=== PATIENT | male | born 1995 | race African-American/Black ===

== ENCOUNTER 2017-08-07 14:00 | Emergency (ER) | payer BC ==
[2017-08-07] MEDS ORDERED: Sodium Chloride 0.9% 10 ML Syringe FLUSH PRN (15:17)
[2017-08-07] MEDS ORDERED: Ketorolac 30 MG/ML SDV IVPUSH ONE (15:17)
[2017-08-07] MEDS ORDERED: Prochlorperazine 10 MG/2 ML SDV IVPUSH ONE (15:17)
[2017-08-07] MEDS ORDERED: diphenhydrAMINE 50 MG/ML SDV IVPUSH ONE (15:18)
--- NOTE | 2017-08-07 16:41 | EDM.PDOC ---
ED HPI GENERAL MEDICAL PROBLEM - General Chief Complaint: Headache Stated Complaint: VOMITING/NAUSEA/HEADACHE Time Seen by Provider: 08/07/17 15:12 Source of Information: Reports: Patient History Limitations: Reports: No Limitations - History of Present Illness INITIAL COMMENTS - FREE TEXT/NARRATIVE: The patient presents with a generalized headache for 3 days. He has some nausea and vomiting with it. He has no numbness or weakness. He has no blurred or double vision. He has a history of migraines. He tried medicine at home but it did not help. Onset: Gradual Duration: Day(s): (3) Location: Reports: Head Quality: Reports: Sharp Severity: Severe Improves with: Reports: None Worsens with: Reports: None Associated Symptoms: Reports: Headaches, Nausea/Vomiting. 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 [No Known Home Meds] 08/07/17 [History] Past Medical History Neurological History: Reports: Migraines Social & Family History - Tobacco Use Smoking Status *Q: Never Smoker - Caffeine Use Caffeine Use: Reports: Coffee - Recreational Drug Use Recreational Drug Use: No ED ROS GENERAL - Review of Systems Review Of Systems: See Below Constitutional: Reports: No Symptoms HEENT: Reports: No Symptoms Respiratory: Reports: No Symptoms Cardiovascular: Reports: No Symptoms Endocrine: Reports: No Symptoms GI/Abdominal: Reports: No Symptoms : Reports: No Symptoms Musculoskeletal: Reports: No Symptoms Skin: Reports: No Symptoms Neurological: Reports: Headache - Physical Exam Exam: See Below Exam Limited By: No Limitations General Appearance: Alert, No Apparent Distress Ears: Normal External Exam Nose: Normal Inspection Head Exam: Atraumatic, Normocephalic Neck: Normal Inspection Respiratory/Chest: No Respiratory Distress, Lungs Clear, Normal Breath Sounds Cardiovascular: Regular Rate, Rhythm, No Edema, No Murmur GI/Abdominal: Soft, Non-Tender, No Organomegaly, No Mass Neuro Exam (Abbreviated): Alert, Oriented, No Motor/Sensory Deficits Back Exam: Normal Inspection Extremities: Normal Inspection Course - Vital Signs Last Recorded V/S: Last Vital Signs Temp 97.9 F 08/07/17 14:51 Pulse 76 08/07/17 14:51 Resp 20 08/07/17 14:51 BP 129/86 08/07/17 14:51 Pulse Ox 100 08/07/17 14:51 - Orders/Labs/Meds Orders: Active Orders 24 hr Category Date Time Status Peripheral IV Care [RC] . DIRECTED Care 08/07/17 15:17 Active Sodium Chloride 0.9% [Saline Flush] Med 08/07/17 15:17 Active 10 ml FLUSH ASDIRECTED PRN Peripheral IV Insertion Adult [OM.PC] Routine Oth 08/07/17 15:17 Ordered Medication Orders Sodium Chloride (Saline Flush) 10 ml FLUSH ASDIRECTED PRN PRN Reason: Keep Vein Open Last Admin: 08/07/17 15:35 Dose: 10 ml Meds: Medications Generic Name Dose Route Start Last Admin Trade Name Freq PRN Reason Stop Dose Admin Sodium Chloride 10 ml 08/07/17 15:17 08/07/17 15:35 Saline Flush FLUSH 10 ml ASDIRECTED PRN Administration Keep Vein Open Discontinued Medications Generic Name Dose Route Start Last Admin Trade Name Freq PRN Reason Stop Dose Admin Diphenhydramine HCl 50 mg 08/07/17 15:18 08/07/17 15:32 Benadryl IVPUSH 08/07/17 15:19 50 mg ONETIME ONE Administration Ketorolac Tromethamine 30 mg 08/07/17 15:17 08/07/17 15:33 Toradol IVPUSH 08/07/17 15:18 30 mg ONETIME ONE Administration Prochlorperazine Edisylate 10 mg 08/07/17 15:17 08/07/17 15:34 Compazine IVPUSH 08/07/17 15:18 10 mg ONETIME ONE Administration - Re-Assessments/Exams Free Text/Narrative Re-Assessment/Exam: 08/07/17 16:39 I ordered an IV, benadryl 50mg IV, toradol 30mg IV, and compazine 10mg IV. He is doing better now. I will discharge him home. Departure - Departure Time of Disposition: 16:40 Disposition: Home, Self-Care 01 Condition: Good Clinical Impression: Migraine - Discharge Information Referrals: PCP,None [Primary Care Provider] - Forms: ED Department Discharge, ED Return to Work/School Form Additional Instructions: Go home and rest in a dark room. Please return if you are worse or follow up with your doctor. - My Orders Last 24 Hours: My Active Orders 08/07/17 15:17 Peripheral IV Care [RC] . DIRECTED Sodium Chloride 0.9% [Saline Flush] 10 ml FLUSH ASDIRECTED PRN Peripheral IV Insertion Adult [OM.PC] Routine - Assessment/Plan Last 24 Hours: My Active Orders 08/07/17 15:17 Peripheral IV Care [RC] . DIRECTED Sodium Chloride 0.9% [Saline Flush] 10 ml FLUSH ASDIRECTED PRN Peripheral IV Insertion Adult [OM.PC] Routine
== END 2017-08-07 16:53 | disposition home or self-care (01) ==
LOC: JD.ED 14:00
DX: G43.909 Migraine, unspecified, not intractable, without status migrainosus (principal)
CPT/HCPCS: 96374; 96375; 99284; J0780; J1200; J1885; J7050

== ENCOUNTER 2019-10-27 02:22 | Emergency (ER) | payer BC ==
[2019-10-27] MEDS ORDERED: Albuterol/Ipratropium 3.0-0.5 MG/3 ML Neb Soln NEB ONE (03:04)
--- NOTE | 2019-10-27 03:17 | EDM.PDOC ---
ED HPI GENERAL MEDICAL PROBLEM - General Chief Complaint: Respiratory Problem Stated Complaint: chest pain,coughing Time Seen by Provider: 10/27/19 02:51 Source of Information: Reports: Patient History Limitations: Reports: No Limitations - History of Present Illness INITIAL COMMENTS - FREE TEXT/NARRATIVE: This is a 24-year-old male. Yesterday he was having to clean out a dough machine at [employer]. Apparently the duo had been in the machine for quite some time and it had fermented so had a very strong odor. When he smell the odor as he was cleaning out the machine it made him cough and he became slightly short of breath. When trying to go to sleep tonight he felt like his lungs were tight and he was having a hard time breathing so he comes to the ER. He has a history of asthma as a kid and used to use an inhaler but he does not have an inhaler any longer. He denies any fever or chills denies any nausea vomiting or diarrhea. And he has no significant coughing at this time. - Related Data Allergies Allergy/AdvReac Type Severity Reaction Status Date / Time No Known Allergies Allergy Verified 02/21/18 23:00 Home Meds: Home Meds Albuterol Sulfate [Albuterol Sulfate Hfa] 18 gm IH Q6H PRN #1 [email or web address] [Rx] Past Medical History Respiratory History: Reports: Asthma Neurological History: Reports: Headaches, Chronic Social & Family History - Tobacco Use Smoking Status *Q: Never Smoker - Caffeine Use Caffeine Use: Reports: Coffee - Recreational Drug Use Recreational Drug Use: No - Living Situation & Occupation Living situation: Reports: Single, with Family Occupation: Employed ([employer]) ED ROS GENERAL - Review of Systems Review Of Systems: See Below Constitutional: Denies: Fever, Chills HEENT: Reports: No Symptoms Respiratory: Reports: Shortness of Breath, Cough. Denies: Wheezing, Sputum Cardiovascular: Denies: Chest Pain Endocrine: Reports: No Symptoms GI/Abdominal: Reports: No Symptoms : Reports: No Symptoms Musculoskeletal: Reports: No Symptoms Skin: Reports: No Symptoms Neurological: Reports: No Symptoms Psychiatric: Reports: No Symptoms Hematologic/Lymphatic: Reports: No Symptoms ED EXAM, GENERAL - Physical Exam Exam: See Below Exam Limited By: No Limitations General Appearance: Alert, WD/WN, No Apparent Distress Eye Exam: Bilateral Eye: Normal Inspection Ears: Normal External Exam Nose: Normal Inspection Throat/Mouth: Normal Inspection, Normal Lips, Normal Voice, No Airway Compromise Head: Normocephalic Neck: Supple Respiratory/Chest: No Respiratory Distress, Lungs Clear, Normal Breath Sounds. No: Wheezing Cardiovascular: Regular Rate, Rhythm, No Murmur Back Exam: Normal Inspection, Full Range of Motion Extremities: Normal Inspection, Normal Range of Motion Neurological: Alert, Oriented Psychiatric: Normal Affect, Normal Mood Skin Exam: Warm, Dry Course - Vital Signs Last Recorded V/S: Last Vital Signs Temp 97 F 10/27/19 02:31 Pulse 73 10/27/19 02:31 Resp 18 10/27/19 02:31 BP 146/79 H 10/27/19 02:31 Pulse Ox 97 10/27/19 03:10 - Orders/Labs/Meds Orders: Active Orders 24 hr Category Date Time Status RT Aerosol Therapy [RC] ASDIRECTED Care 10/27/19 03:04 Active Meds: Medications Discontinued Medications Generic Name Dose Route Start Last Admin Trade Name Viktoriya PRN Reason Stop Dose Admin Albuterol/Ipratropium 3 ml 10/27/19 03:04 10/27/19 03:09 Duoneb 3.0-0.5 Mg/3 Ml NEB 10/27/19 03:05 3 ml ONETIME ONE Administration - Re-Assessments/Exams Free Text/Narrative Re-Assessment/Exam: 10/27/19 03:44 The patient states that the breathing treatment really opened him up and he feels like he is breathing normally again and feels good. He really has not had asthma since he was a kid so he does not know whether he needs an inhaler or not. I will provide a prescription that he can get if he continues to have problems. Departure - Departure Time of Disposition: 03:45 Disposition: Home, Self-Care 01 Condition: Good Clinical Impression: Reactive airway disease Qualifiers: Asthma severity: mild Asthma persistence: unspecified Qualified Code(s): J45.909 - Unspecified asthma, uncomplicated - Discharge Information Prescriptions: Albuterol Sulfate [Albuterol Sulfate Hfa] 18 gm IH Q6H PRN #1 [email or web address] PRN Reason: Shortness Of Breath Instructions: Bronchospasm, Adult Referrals: PCP,None [Primary Care Provider] - Forms: ED Department Discharge, ED Return to Work/School Form Additional Instructions: If you feel like your lungs are still tight or you have intermittent symptoms then get the inhaler and start using it, if your symptoms seem to worsen follow- up with your family doctor or return to the ER as needed Sepsis Event Note - Evaluation Sepsis Screening Result: No Definite Risk - Focused Exam Vital Signs: Vital Signs Temp Pulse Resp BP Pulse Ox Pulse Ox 10/27/19 03:10 97 10/27/19 02:31 97 F 73 18 146/79 H 99 Date Exam was Performed: 10/27/19 Time Exam was Performed: 03:44 - My Orders Last 24 Hours: My Active Orders 10/27/19 03:04 RT Aerosol Therapy [RC] ASDIRECTED - Assessment/Plan Last 24 Hours: My Active Orders 10/27/19 03:04 RT Aerosol Therapy [RC] ASDIRECTED
== END 2019-10-27 04:08 | disposition home or self-care (01) ==
LOC: JD.ED 02:22
DX: J45.909 Unspecified asthma, uncomplicated (principal)
CPT/HCPCS: 94640; 99283; 99284-25; J7620-GY